=== PATIENT | male | born 1985 | race Caucasian/White ===

== ENCOUNTER 2021-03-21 08:29 | Emergency (ER) | payer OTHER ==
[2021-03-21] MEDS ORDERED: ONDANSETRON ODT 4 MG TABLET TL STA (09:27)
--- NOTE | 2021-03-21 09:31 | ED Physician Documentation ---
History of Present Illness - Stated complaint Stated Complaint: HEAD PX/N/V CHILLS - Chief complaint Chief Complaint: General - History obtained from History obtained from: Patient - Additonal information Additional information: The patient comes to the emergency department chief complaint of headache that started yesterday, followed by sore throat, nausea, and vomiting. He states his throat is mainly sore when he coughs. No swelling or difficulty speaking or swallowing. The patient has had a nonproductive cough that is worse if he tries to take a deep breath. He is otherwise healthy. He has had a full vaccination series for Covid but has not been boosted. No known sick contacts. Patient states she just came here with the [employer]. He is otherwise healthy. Review of Systems Ten Systems: 10 systems reviewed and negative Constitutional: reports: Reviewed and negative Eyes: reports: Reviewed and negative Ears: reports: Reviewed and negative Nose: reports: Congestion Throat: reports: Sore throat Cardiac: reports: Reviewed and negative Respiratory: reports: Cough GI: reports: Reviewed and negative : reports: Reviewed and negative Skin: reports: Reviewed and negative Musculoskeletal: reports: Reviewed and negative Neurologic: reports: Headache Psychiatric: reports: Reviewed and negative Endocrine: reports: Reviewed and negative Immunocompromised: reports: Reviewed and negative PD PAST MEDICAL HISTORY - Present Medications Home Medications: Ambulatory Orders Medication Instructions Recorded Confirmed Ondansetron Odt [Zofran] 4 mg TL Q6H PRN #10 tablet 03/21/21 - Allergies Allergies/Adverse Reactions: Allergies Allergy/AdvReac Type Severity Reaction Status Date / Time No Known Drug Allergies Allergy Verified 03/21/21 08:38 PD ED PE NORMAL - Vitals Vital signs reviewed: Yes - General General: Alert and oriented X 3, No acute distress, Well developed/nourished - HEENT HEENT: Atraumatic, PERRL, EOMI, Moist mucous membranes - Neck Neck: Supple, no meningeal sign - Cardiac Cardiac: RRR, No murmur, Strong equal pulses - Respiratory Respiratory: No respiratory distress, Clear bilaterally, Other (Intermittent dry cough, especially with deep breaths.) - Abdomen Abdomen: Soft, Non tender, Non distended - Derm Derm: Normal color, Warm and dry, No rash - Extremities Extremities: No deformity, Normal ROM s pain - Neuro Neuro: Alert and oriented X 3, chief knowledge officer 2-12 intact, Normal speech - Psych Psych: Normal mood, Normal affect Results - Vitals Vitals: Vital Signs - 24 hr 03/21/21 08:35 Temperature 36.3 C L Heart Rate 106 H Respiratory 16 Rate Blood Pressure 136/80 H O2 Saturation 96 Oxygen O2 Source Room air PD MEDICAL DECISION MAKING - ED course Complexity details: considered differential, d/w patient ED course: The patient overall was fairly well-appearing, though he did appear mildly uncomfortable. His lungs were clear and his oxygen levels were normal. He was afebrile in the emergency department. He was given a dose of Zofran here and a Covid test was sent and is pending at this time. We have discussed symptomatic management at home, and the need to quarantine until his Covid test results come back. We discussed the usual indications for return. Departure - Departure Disposition: 01 Home, Self Care Clinical Impression: Viral syndrome Condition: Stable Instructions: ED Viral Syndrome Prescriptions: Ondansetron Odt [Zofran] 4 mg TL Q6H PRN #10 tablet PRN Reason: Nausea / Vomiting Comments: You have been treated with an antinausea medication in the emergency department today. Overall, your vital signs and physical exam are fairly reassuring in terms of severe illness at this time. Your lungs are clear and your oxygen levels in the blood are normal by pulse oximetry. It is possible that you have picked up Covid or one of the many other viruses that go around this time of year. A Covid test has been performed and is pending at this time. This should be back in the next 24 to 48 hours. If it is positive we will call you; however, we do not call back negative test. The best way to get a negative test is to go to the hospital website at [email or web address], click on the "my [facility] health tab" and send it for the patient portal. In the meantime, please quarantine until you are certain that you have a negative test result. Your prescription has been electronically transmitted to [facility] in [place].
[2021-03-21 09:51] VITALS: BP 135/78
== END 2021-03-21 09:56 | disposition home or self-care (01) ==
LOC: ED 08:29
DX: B34.9 Viral infection, unspecified (principal); Z20.822 Contact with and (suspected) exposure to COVID-19
CPT/HCPCS: 87635; 99283; Q0162